=== PATIENT | male | born 1955 | race Caucasian/White ===

== ENCOUNTER 2021-01-26 12:24 | Emergency (ER) | payer MEDICARE, OTHER ==
[2021-01-26] MEDS ORDERED: Lidocaine 1% 30 ML SDV INJECT ONE (13:20)
[2021-01-26] MEDS: Bacitracin Oint 1 GM U/D Packet TOP ONE (13:24)
--- NOTE | 2021-01-26 13:29 | EDM.PDOC ---
ED HPI GENERAL MEDICAL PROBLEM - General Chief Complaint: General Stated Complaint: 2 FISH HOOKS IN WRISTS Time Seen by Provider: 01/26/21 13:05 Source of Information: Reports: Patient History Limitations: Reports: No Limitations - History of Present Illness INITIAL COMMENTS - FREE TEXT/NARRATIVE: fish hook in the left forearm patient attempted to remove them prior to arrival Onset: Sudden Duration: Hour(s): (1) - Related Data Home Meds: Home Meds Amoxicillin 500 mg PO BID #6 tab 01/26/21 [Rx] Past Medical History - Past Health History Medical/Surgical History: Denies Medical/Surgical History ED ROS GENERAL - Review of Systems Review Of Systems: See Below Constitutional: Reports: No Symptoms HEENT: Reports: No Symptoms Respiratory: Reports: No Symptoms Cardiovascular: Reports: No Symptoms GI/Abdominal: Reports: No Symptoms : Reports: No Symptoms Musculoskeletal: Reports: No Symptoms ED EXAM, GENERAL - Physical Exam Exam: See Below Exam Limited By: No Limitations General Appearance: Alert, WD/WN, No Apparent Distress Eye Exam: Bilateral Eye: EOMI Head: Atraumatic Respiratory/Chest: No Respiratory Distress Cardiovascular: Normal Peripheral Pulses GI/Abdominal: Soft, Non-Tender Skin Exam: Other (there are 2 fishhooks partially buried under the skin. no bleeding ) Course - Orders/Labs/Meds Meds: Medications Discontinued Medications Generic Name Dose Route Start Last Admin Trade Name Marjorie PRN Reason Stop Dose Admin Bacitracin 1 dose 01/26/21 13:24 Bacitracin Oint 1 Gm U/D Packet TOP 01/26/21 13:25 ONETIME ONE - Re-Assessments/Exams Free Text/Narrative Re-Assessment/Exam: 01/26/21 13:27 left forearm after application of lidocaine fish hooks were removed using a needle [place] antibiotic ointment applied sterile dressing well tolerated Departure - Departure Time of Disposition: 13:28 Disposition: Home, Self-Care 01 Condition: Good Clinical Impression: Fish hook in forearm - Discharge Information *PRESCRIPTION DRUG MONITORING PROGRAM REVIEWED*: Not Applicable *COPY OF PRESCRIPTION DRUG MONITORING REPORT IN PATIENT LAUREN: Not Applicable Prescriptions: Amoxicillin 500 mg PO BID #6 tab Referrals: PCP,None [Primary Care Provider] - Forms: ED Department Discharge Additional Instructions: - keep wound dry and clean - apply antibiotics ointment on the wound at least twice daily - watch for signs of infection - take oral antibiotics as prescribed - Problem List & Annotations (1) Fish hook in forearm SNOMED Code(s): 503534320 Code(s): S59.919A - UNSPECIFIED INJURY OF UNSPECIFIED FOREARM, INITIAL ENCOUNTER Status: Acute Priority: Low Current Visit: Yes - Problem List Review Problem List Initiated/Reviewed/Updated: Yes - Assessment/Plan Plan: - keep wound dry and clean - apply antibiotics ointment on the wound at least twice daily - watch for signs of infection - take oral antibiotics as prescribed
== END 2021-01-26 13:32 | disposition home or self-care (01) ==
LOC: LB.ED 12:24
DX: S50.852A Superficial foreign body of left forearm, initial encounter (principal); W45.8XXA Other foreign body or object entering through skin, initial encounter
CPT/HCPCS: 99283